=== PATIENT | female | born 1935 | race Caucasian/White ===

== ENCOUNTER 2020-07-26 18:30 | Inpatient (IN) | payer MEDICARE ==
[~2020-07-26] VITALS: Ht 165.1 cm; Wt 97.4 kg
[~2020-07-26 18:30] MED LIST: AMLO5 PO; ASPI325 PO; ASPI81CH PO; ASPI81EC PO; BP MEDICATION; CHOL10002; CLOP75 PO; FERR325; GLIP10 PO; GLYB5 PO; HYDR1TAB94 PO; METO50ER PO; NEBI10 PO; NITR.4SL SL; OLME20-12. PO; OLMESARTAN/HCTZ PO; RANO500T PO; ROSU10TA PO; ZOLP10 PO
[2020-07-26 18:50] LABS: Chloride (POC) 100 mmol/L (98-108); Creatinine (POC) 1.4 mg/dL (0.6-1.0); Glucose (ISTAT POC) 370 mg/dL (70-99); Hemoglobin (POC) 16.7 g/dL (12.0-16.0); Potassium (POC) 4.6 mmol/L (3.5-5.5); Sodium (POC) 140 mmol/L (135-148); Total CO2 (POC) 28 mmol/L (21-32)
[2020-07-26] MEDS ORDERED: BASAGLAR K100 UNIT/1 (19:09)
[2020-07-26] MEDS ORDERED: OLMESARTAN MEDO40 MG PO (19:10)
[2020-07-26] MEDS ORDERED: HYDCHL25 PO (19:10)
[2020-07-26 19:14] LABS: BASOPHILS PERCENT AUTO 1 % (0-2); EOSINOPHILS ABSOLUTE AUTO 0.02 K/mm3 (0.00-0.68); EOSINOPHILS PERCENT AUTO 0 % (0-6); Hematocrit 46.6 % (33.0-51.0); Hemoglobin 13.5 g/dL (11.5-16.0); IMMATURE GRAN ABSOLUTE AUTO 0.42 K/mm3 (0.00-0.10); IMMATURE GRAN PERCENT AUTO 2 % (0-1); LYMPHOCYTES ABSOLUTE AUTO 6.76 K/mm3 (0.84-5.20); LYMPHOCYTES PERCENT AUTO 31 % (21-46); MONOCYTES ABSOLUTE AUTO 0.91 K/mm3 (0.16-1.47); MONOCYTES PERCENT AUTO 4 % (4-13); Mean Corpuscular HGB 25.7 pg (26.0-34.0); Mean Corpuscular Volume 89 fL (80-100); Mean Platelet Volume 10.9 fL (9.1-12.4); NEUTROPHILS ABSOLUTE AUTO 13.98 K/mm3 (1.96-9.15); NEUTROPHILS PERCENT AUTO 63 % (41-73); Platelet Count 210 K/mm3 (150-400); RDW Coefficient Variation 14.7 % (11.7-14.2); RDW Standard Deviation 48.6 fL (35.1-46.3); Red Blood Cell Count 5.25 M/mm3 (3.80-5.20); White Blood Cell Count 22.19 K/mm3 (4.00-11.30)
[2020-07-26] MEDS ORDERED: NEURONTIN300 MG PO (19:17)
[2020-07-26] MEDS ORDERED: Bystolic20 MG PO (19:17)
[2020-07-26 19:31] LABS: International Normalized Ratio 1.08; Prothrombin Time Results 11.5 Sec (9.7-11.5)
[2020-07-26 19:35] LABS: Albumin, Blood 3.2 g/dL (3.4-5.0); Albumin/Globulin Ratio 0.8 (0.8-1.8); Bilirubin, Total 0.5 mg/dL (0.1-1.0); Bun/Creatinine Ratio 20.6 (12.0-20.0); Calcium, Blood 8.9 mg/dL (8.5-10.1); Creatinine, Blood 1.41 mg/dL (0.40-1.00); Potassium, Blood 3.3 mmol/L (3.5-5.5); Total Protein, Blood 7.2 g/dL (6.4-8.2)
[2020-07-26 19:51] LABS: Troponin I 3.88 ng/mL (0.000-0.040)
[2020-07-26 21:40] LABS: Magnesium, Blood 2.2 mg/dL (1.6-2.4)
[2020-07-26 21:56] LABS: Adenovirus Not Detected (NOT DETECT); Bordetella pertussis Not Detected (NOT DETECT); Chlamydophila pneumoniae Not Detected (NOT DETECT); Coronavirus 229E Not Detected (NOT DETECT); Coronavirus HKU1 Not Detected (NOT DETECT); Coronavirus NL63 Not Detected (NOT DETECT); Coronavirus OC43 Not Detected (NOT DETECT); Human Metapneumovirus Not Detected (NOT DETECT); Human Rhinovirus/Enterovirus Not Detected (NOT DETECT); Influenza A/2009-H1 Not Detected (NOT DETECT); Influenza A/H1 Not Detected (NOT DETECT); Influenza A/H3 Not Detected (NOT DETECT); Influenza B Not Detected (NOT DETECT); Mycoplasma pneumoniae Not Detected (NOT DETECT); Parainfluenza Virus 1 Not Detected (NOT DETECT); Parainfluenza Virus 2 Not Detected (NOT DETECT); Parainfluenza Virus 3 Not Detected (NOT DETECT); Parainfluenza Virus 4 Not Detected (NOT DETECT); Respiratory Syncytial Virus Not Detected (NOT DETECT); SARS-Cov-2 (COVID-19), BioFire Not Detected (NOT DETECT)
--- NOTE | 2020-07-27 00:49 | NUR ---
PROVIDER IN ROOM PROVIDER IN ROOM SPEAKING WITH FAMILY PER THEIR REQUEST. PATIENT'S FAMILY (DAUGHTER AND GRANDDAUGHTER) TOLD THIS RN THAT THEY WOULD LIKE TO WITHDRAW CARE THEY KNOW THE PATIENT WOULD NOT HAVE WANTED ANY OF THE CURRENT INTERVENTIONS (VENTILATOR). THE PATIENT DOES HAVE A POLST THAT SHOWED THAT THE PATIENT WISHED TO BE A DNR WITH LIMITED INTERVENTIONS. THIS WAS SCANNED AND PLACED IN CHART AND RELAYED TO THE PROVIDER EARLIER. PROVIDER TO PLACE COMFORT CARE ORDERS. PLANS TO DISCONTINUE CARDIAC MEDICATIONS AND KEEP THE PATIENT COMFORTABLE. SPIRITUAL CARE BEING CONTACTED.
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
--- NOTE | 2020-07-27 02:48 | NUR ---
COMFORT CARE PATIENT IS ON COMFORT CARE. EXTUBATAD AT 0136. MEDICATIONS BEING GIVEN PER EMAR. PATIENT IS GRIMACING AND WORK BREATHING IS INCREASED. RR>10. PATIENT IS MOANING. WILL CONTINUE TO GIVE MEDICATIONS PER EMAR. COLLABORATING WITH RT TO GIVE INHALED MORPHINE. FAMILY PROVIDED WITH COFFEE AND WATER. SPIRITUAL CARE PROVIDED SUPPORT DURING AND AFTER EXTUBATION. EDUCATED FAMILY ON END OF LIFE. LIGHTS DIMMED AND MUSIC TURNED ON. SCOPALAMINE PATCH APPLIED FOR SECRETIONS. ORAL CARE DONE.
--- NOTE | 2020-07-27 04:32 | NUR ---
PATIENT ADMISSION NOTE 07/26/20 PATIENT ADMITTED TO ICU 10 FROM HYPERION ADMINISTRATOR AT 2044 ON 07/26/20. THE PATIENT ARRIVED INTUBATED WITH A 7.[address] THE PATIENT WAS MOVING ALL EXTREMITIES, BUT IT WAS NON-PURPSOSEFUL MOVEMENT. UNABLE TO FOLLOW COMMANDS. VORB TO BEGIN COOLING TO MAITAIN A TEMP OF 36 C EXTERNALLY, UNTIL PLANS COULD BE DISCUSSED WITH FAMILY REGARDING POSSIBLE PLACEMENT OF A COOLING CATHETER. COOLING WRAPS APPLIED. RESTRAINTS APPLIED TO PROTECT TUBES ADND LINES. NO SEDATION WAS INFUSING AT THIS TIME. VORB FOR PROPOFOL INFUSION FOR SEDATION FROM PROVIDER WHO WAS ASSESSING THE PATIENT IN THE ROOM. THE PATIENT WAS RULED OUT FOR COVID SHORTLY AFTER ARRIVAL TO THE UNIT DUE TO INITIAL COMPLAINT OF SHORTNESS OF BREATH AND FOLLOWING CARDIAC ARREST. RIGHT FEMORAL ACCESS SITE IS SOFT AND FREEE FROM HEMATOMA. DRESSING CDI. RIGHT PEDAL PULSE AUDIBLE WITH DOPPLER. RLE PINK, WARM, AND DRY. TWO NEW PIVS PLACED BY OTHER RN VIA ULTRASOUND. STABLE BP, HYPERTENSIVE WITH AGITATION. TACHYCARDIC. EKG PERFORMED WHICH SHOWED A PACED RHYTHM. AMIODARONE BOLUS ADMINISTERED AND THEN CONTINUOUS INFUSION FOLLOWED (PER EMAR). THE PATIENT'S BP DID NOT TOLERAT SEDATION AND AMIODARONE. PROVIDER NOTIFIED AND TORB TO INFUSE LOW DOSE NOREPINEPHRINE TO MAINTAIN MAP>65. BURDICK CATHETER IN PLACE AND PATENT. MARGINAL OUPTUT. OGT IN PLACE, CLAMPED. SKIN ECCHYMOTIC AND PALE. EXCORIATION/REDNESS TO STERNUM AND UNDER BREASTS. SKIN OTHERWISE INTACT. AWAITING FAMILY ARRIVAL TO DISCUSS GOALS OF CARE.
--- NOTE | 2020-07-27 04:47 | NUR ---
FAMILY NOTE 07/26/20 5495 FAMILY REFUSING MEDICATIONS FOR PATIENT AT THIS TIME. THEY WISH TO SPEAK TO PROVIDER REGARDING GOALS OF CARE BEFORE ADMINISTERING FURTHER MEDICATIONS. EDUCATED ON PURPOSE OF ANTICOAGULANTS, INSULIN, AND OTHER SCHEDULED MEDICATIONS. DOCUMENTED REFUSAL ON EMAR.
--- NOTE | 2020-07-27 05:38 | NUR ---
COMFORT CARE NOTE- 07/27/20 PATIENT'S FAMILY HAS GONE HOME TO REST. EDUCATED ON END OF LIFE AND COMFORT CARE MEASURES. ORAL CARE PROVIDED. SCOPALAMINE PATCH PLACED EARLIER IN THE SHIFT. ORAL CARE PERFORMED. PATIENT TURNED EARLIER. EXCESSIVE LINENS REMOVED. COOLING WRAPS REMOVED EARLIER. PAIN MEDICATION GIVEN PER EMAR. PATIENT'S HOB ELEVEATED. COLLABORATED WITH RT FOR MORPHINE NEBILIZER TREATMENT WHEN IT IS AVAILABLE FOR ADMINISTRATION.
--- NOTE | 2020-07-27 06:46 | NUR ---
FAMILY UPDATED FAMILY UPDATED ON PATIENT STATUS. PATIENT'S OXYGEN SATURATION DROPPING AND HEART RATE INCREASING. CONTINUING TO MEDICATE PER EMAR FOR DYSPNEA AND PAIN.
--- NOTE | 2020-07-27 07:08 | NUR ---
ASSUMED CARE: PT RESTING IN BED, GRIMACE NOTED. CONGESTION HEARD IN THROAT. SCOPALAMINE PATCH IN PLACE. SUPERVISOR PACKING REPORTS FAMILY LEFT THIS AM AND MAY RETURN LATER TODAY. HR CURRENTLY AT 104 WITH PACER SPIKES NOTED. WILL DISCUSS WITH CARDIOLOGY FURTHER. COMFORT CARE.
--- NOTE | 2020-07-27 08:19 | NUR ---
CALL TO DR MYERS TO ASK FOR ATROPINE DROPS AND DR ASKED WHY PACER SPIKES WERE STILL BEING DOCUMENTED. STATED THAT PACER IS STILL ACTIVATED. DR PLACED ORDER FOR THIS. SPOKE WITH NURSING LOAN PROCESSING SUPERVISOR WHO GOT HEART CENTER STAFF TO COME IN TO INTERROGATE PACER TO CHANGE SETTINGS. CALL TO DR DOYLE SO THAT HE IS AWARE OF SITUATION WELL. INFORMED CONSENT GIVEN TO FAMILY AND SIGN. FAMILY IS AWARE THAT PACER IS PROLONGING LIFE AND IF WE DEACTIVATE PACER PT MAY PASS QUICKLY. HEART CENTER STAFF IN ROOM AT THIS TIME. FAMILY AT BEDSIDE.
--- NOTE | 2020-07-27 08:49 | NUR ---
REPORT GIVEN TO ANSON HAY. PT TRANSFERRED VIA BED BY RN AND PETROLEUM REFINERY OPERATOR. FAMILY AWARE OF NEW ROOM. ATROPINE DROPS SENT TO MED FLOOR WHEN AVAILABLE. NO FURTHER NEEDS OR CONCERNS
--- NOTE | 2020-07-27 08:50 | NUR ---
PT TRANSFERED. PT TRANSFERED FROM ICU. PT MOVED TO OUT BED. GALE CARE COMPLETED. BREIF APPLIED. CATH CARE COMPLETED & STAT LOCK APPLIED. PT SUCTIONED AND GIVEN ATROPINE FOR EXCESSIVE SECRETIONS. PT REPOSITIONED TO L SIDE TO HELP WITH SECRETIONS. FAMILY IN ROOM. DENIED OTHER NEEDS AT THIS TIME.
--- NOTE | 2020-07-27 10:47 | NUR ---
PT PT AT 1035. FAMILY & THIS RN IN ROOM WHEN PT PASSED. FAMILY PROVIDED WITH TISSUES AND OFFERED CHAPELIN SERVICES. FAMILY ASKED TO BE ALONE FOR A FEW MINUTES TO BE WITH PT.
--- NOTE | 2020-07-27 13:13 | NUR ---
PT DISCHARGED. PT DISCHARGED FROM FACILITY AT 1230. PT TAKEN VIA GURNEY BY [facility].
== END 2020-07-27 10:35 ==
LOC: ER 18:41 → ICUW 19:26 → MEDS 07-27 08:29 → ICUW 07-27 10:35
PROVIDERS: Emergency Medicine; ADMIT Internal Medicine Interventional Cardiology
PROC: 5A12012 Performance of Cardiac Output, Single, Manual (ICD-10-PCS; principal; 2020-07-26)
PROC: 3E033XZ Introduction of Vasopressor into Peripheral Vein, Percutaneous Approach (ICD-10-PCS; 2020-07-26)
PROC: B2111ZZ Fluoroscopy of Multiple Coronary Arteries using Low Osmolar Contrast (ICD-10-PCS; 2020-07-26)
PROC: B2121ZZ Fluoroscopy of Single Coronary Artery Bypass Graft using Low Osmolar Contrast (ICD-10-PCS; 2020-07-26)
PROC: B2181ZZ Fluoroscopy of Left Internal Mammary Bypass Graft using Low Osmolar Contrast (ICD-10-PCS; 2020-07-26)
PROC: B41F1ZZ Fluoroscopy of Right Lower Extremity Arteries using Low Osmolar Contrast (ICD-10-PCS; 2020-07-26)
PROC: 5A1935Z Respiratory Ventilation, Less than 24 Consecutive Hours (ICD-10-PCS; 2020-07-26)
DX: I21.11 ST elevation (STEMI) myocardial infarction involving right coronary artery (principal); R40.2311 Coma scale, best motor response, none, in the field [EMT or ambulance]; R40.2111 Coma scale, eyes open, never, in the field [EMT or ambulance]; R40.2211 Coma scale, best verbal response, none, in the field [EMT or ambulance]; I13.0 Hypertensive heart and chronic kidney disease with heart failure and stage 1 through stage 4 chronic kidney disease, or unspecified chronic kidney disease; I50.32 Chronic diastolic (congestive) heart failure; I47.2 Ventricular tachycardia; R65.10 Systemic inflammatory response syndrome (SIRS) of non-infectious origin without acute organ dysfunction; Z95.1 Presence of aortocoronary bypass graft; Z79.82 Long term (current) use of aspirin; Z51.5 Encounter for palliative care; I25.10 Atherosclerotic heart disease of native coronary artery without angina pectoris; R57.0 Cardiogenic shock; E11.22 Type 2 diabetes mellitus with diabetic chronic kidney disease; Z87.891 Personal history of nicotine dependence; Z79.4 Long term (current) use of insulin; N18.3 Chronic kidney disease, stage 3 (moderate); Z95.810 Presence of automatic (implantable) cardiac defibrillator; I16.0 Hypertensive urgency; E11.65 Type 2 diabetes mellitus with hyperglycemia; E78.5 Hyperlipidemia, unspecified; E66.9 Obesity, unspecified; Z68.35 Body mass index [BMI] 35.0-35.9, adult
CPT/HCPCS: 0202U; 31720; 36415; 36680; 51702; 71045; 76937; 80047; 80053; 82947; 83735; 83880; 84484; 85014; 85025; 85610; 85730; 92950; 93005; 93010; 93284; 93455; 94002; 94640; 96365-59; 96376-59; 99152; 99153; 99291-25; A9270-GY; C1760; C1769; C1894; J0171; J0282; J1170; J1644; J2060; J2250; J2270; J2704; J3010; J7030; J7050; J7060; Q9967